=== PATIENT | female | born 1940 | race Caucasian/White ===

== ENCOUNTER → 2017-09-20 | Day surgery (SDC) | payer MEDICARE ==
[~2017-09-20] VITALS: Ht 171.4 cm; Wt 56.0 kg
[~2017-09-20] MED LIST: *HYDROmorphone PF 1 MG VIAL PERIprocedural Use ONLY ONE; *morphine SULFATE 4 MG/ML PERIprocedure ONLY ONE; ACETAMINOPHEN 1000 MG/100 ML 100 ML IV ONE; AMLO5TAB2 PO; APIX2.5T PO; ARMO30TA PO; BUPIVACAINE/EPINEPHRINE 0.25% 50 ML VIAL ONE; CHLORHEXIDINE GLUCONATE 2 % 1 PACK (2 CLOTHS) TOPICAL PRN; CHLORHEXIDINE GLUCONATE 4% SOLN 120 ML BTL TOPICAL SCH; CLINDAMYCIN PHOS 600 MG/4 ML VIAL ONE; DEXAMETHASONE SOD PHOS 4 MG/ML VIAL IV ONE; DILT120C9 PO; DO NOT ADM ANY ANTICOAGULANT DRUGS PRN; ESTR42.5V VAGINAL; GENTAMICIN SULFATE 80 MG/2 ML VIAL ONE; HYDROmorphone HCL PF 2 MG/ML VIAL IV PUSH ONE; KETOROLAC TROMETHAMINE 30 MG/ML (IVP) VIAL IM ONE; KETOROLAC TROMETHAMINE 30 MG/ML (IVP) VIAL ONE; LIDOCAINE HCL 1% PF 5 ML SYRINGE OTHER ONE; LOSA25TA PO; MORPHINE SULFATE 2 MG/ML INJ IV PUSH PRN; OMEP20TA93 PO; ONDANSETRON HCL 4 MG/2 ML VIAL IV ONE; POVIDONE IODINE 5% (ANTISEPSIS KIT) 4 APPLICATIONS EACH NARE PRN; PROPOFOL 200 MG/20 ML AMP IV ONE; SODIUM CHLORID 0.9% 500 ML IV PRN; VANCOMYCIN 1000 MG/NS 250 ML (for <70 kg) IV SCH; VANCOMYCIN HCL 1000 MG VIAL ONE; ceFAZolin INJ 1,000 MG VIAL ONE
[2017-09-20] MEDS: LACTATED RINGER'S 1000 ML IV PRN ×2 (07:15→10:15)
[2017-09-20 07:19] LABS: AUTOMATED NEUTROPHIL # 2.5 TH/MM3 (1.8-7.7); BASOPHIL % 0.6 % (0.0-2.0); EOSINOPHIL % 1.3 % (0.0-4.0); HEMATOCRIT 35.8 % (35.0-46.0); HEMOGLOBIN 12.3 GM/DL (11.6-15.3); MEAN CELL VOLUME 93.3 FL (80.0-100.0); MEAN CORPUSCULAR HEMOGLOBIN 32.1 PG (27.0-34.0); MEAN CORPUSCULAR HGB CONC 34.4 % (32.0-36.0); MEAN PLATELET VOLUME 8.6 FL (7.0-11.0); MONOCYTE # 0.3 TH/MM3 (0-0.9); NEUT % 65.1 % (16.0-70.0); PLATELET COUNT 160 TH/MM3 (150-450); RED BLOOD COUNT 3.84 MIL/MM3 (4.00-5.30); RED CELL DISTRIBUTION WIDTH 13.2 % (11.6-17.2); WHITE BLOOD COUNT 3.8 TH/MM3 (4.0-11.0)
--- NOTE | 2017-09-20 09:41 | PD.OP ---
cc: Garret Rowell MD Operative Report Date of Surgery: Sep 20, 2017 Preoperative Diagnosis: Displaced right radial shaft fracture, retained hardware right wrist Postoperative Diagnosis: Procedure: Removal of deep hardware right radius, open reduction internal fixation right radius Anesthesia: Gen. Surgeon: Garret Rowell Salesforce Consultant(s): GENNY May PA-C The surgical procedure was assisted by my physician personal care assistant. My P.A. presence was necessary throughout this case for the manipulation and positioning of the surgical extremity. My P.A. was assisting me throughout the duration of this procedure. The skill set of a physician personal care assistant was medically necessary to complete this procedure. During the surgical case the surgical scrub technician was working at the back table and the physician personal care assistant was directly assisting me. Operation and Findings: Implants used: ITS Plan of activity: Nonweightbearing right arm, long-arm splint 2 weeks followed by short arm cast Patient was seen and evaluated preoperatively and found to have a displaced right distal radius shaft fracture. Initially fracture was minimally displaced and patient was treated nonoperatively. However the fracture migrated and displaced further. Informed consent was obtained after detailed discussion of risk and benefits including bleeding, infection, injury to arteries, nerves, and blood vessels, weakness and numbness of hand, and tendon rupture. Informed consent was obtained. Patient received IV antibiotics prior to incision. Timeout procedure was performed. Operative extremity was prepped with alcohol followed by Hibiclens and draped usual sterile fashion. A standard volar approach to the distal radius was utilized. A 5 inch incision was made over the FCR tendon. Tendon sheath was opened. Pronator quadratus was elevated up. The fracture site was now visualized. Attention was now turned towards hardware removal. The hardware was identified and exposed. Osteotomes were used to remove excess bone around the plate. Screwdriver was used to remove the screws. Osteotome was used to remove the plate. Next attention was turned to open reduction internal fixation of fracture. The fracture was gently reduced. Traction was applied. Fracture fragments were manipulated to achieve excellent reduction. K wires were used to hold provisional fixation. Fluoroscopy confirmed appropriate alignment of fracture. A ITS plate was selected. Plate was provisionally fixed to bone with K wires. 3.5 cortical screws were used to compress plate to bone. Fluoroscopy confirmed appropriate alignment of fracture with well-placed hardware. Multiple screws were now placed on each side of the fracture. Screws were predrilled and measured for appropriate length. K wires were removed. Final fluoroscopy revealed excellent of fracture with well-placed hardware. The wound was thoroughly irrigated with sterile saline. Subcutaneous tissue was closed with 3-0 Vicryl and skin was closed with 3-0 nylon. Sterile dressings were applied with Xeroform, 4 x 4, soft roll, and a well padded splint. Patient was awakened and transferred to recovery room in stable condition Garret Rowell MD Sep 20, 2017 09:41
--- NOTE | 2017-09-20 09:47 | RADRPT ---
EXAM DATE/TIME: 09/20/2017 09:22 [facility] COMPARISON: No previous studies available for comparison. INDICATIONS : ORIF right wrist fracture. MEDICAL HISTORY : Unobtainable. SURGICAL HISTORY : Unobtainable. ENCOUNTER: Initial ACUITY: 1 day PAIN SCORE: Non-responsive. LOCATION: Right wrist FINDINGS: Anatomic alignment with plate bridging distal radius fracture. Fibular fracture again noted. Carpus intact. CONCLUSION: Anatomic alignment with plate and screws across radial fracture.. Francesco Lynne MD FACR on September 20, 2017 at 9:41 Board Certified Radiologist. This report was verified electronically.
[2017-09-20 11:39] LABS: BICARBONATE 23.6 MEQ/L (21.0-32.0); CALCIUM 8.6 MG/DL (8.5-10.1); CREATININE 0.71 MG/DL (0.50-1.00)
[2017-09-20 11:53] LABS: BASOPHIL % 0.4 % (0.0-2.0); EOSINOPHIL % 0.6 % (0.0-4.0); HEMATOCRIT 34.5 % (35.0-46.0); HEMOGLOBIN 11.8 GM/DL (11.6-15.3); LYMPH % 21.4 % (9.0-44.0); LYMPHOCYTE # 0.9 TH/MM3 (1.0-4.8); MEAN CORPUSCULAR HEMOGLOBIN 31.8 PG (27.0-34.0); MEAN CORPUSCULAR HGB CONC 34.1 % (32.0-36.0); MEAN PLATELET VOLUME 9.1 FL (7.0-11.0); MONO % 2.6 % (0.0-8.0); MONOCYTE # 0.1 TH/MM3 (0-0.9); PLATELET COUNT 181 TH/MM3 (150-450); RED BLOOD COUNT 3.71 MIL/MM3 (4.00-5.30); RED CELL DISTRIBUTION WIDTH 12.9 % (11.6-17.2); WHITE BLOOD COUNT 4.1 TH/MM3 (4.0-11.0)
[2017-09-20 14:45] VITALS: BP 128/67; PULSE 60; RESP 16; TEMP 97.8; O2SAT 97
--- NOTE | 2017-09-20 20:44 | EKG ---
Date Performed: 09/20/2017 Time Performed: 11:20:16 PTAGE: 77 years EKG: ATRIAL PACING LEFT ANTERIOR FASCICULAR BLOCK NONSPECIFIC ST & T-WAVE ABNORMALITY ABNORMAL E CG PREVIOUS TRACING : 09/20/2017 06.21 Compared to prior tracing no significant change DOCTOR: Norma Sharif Interpretating Date/Time 09/20/2017 20:43:49
--- NOTE | 2017-09-20 21:11 | EKG ---
Date Performed: 09/20/2017 Time Performed: 06:21:56 PTAGE: 77 years EKG: Sinus bradycardia. Left axis deviation Left ventricular hypertrophy Lateral ST-T changes ar e probably due to ventricular hypertrophy Abnormal ECG Compared to the PREVIOUS TRACING left axis present DOCTOR: Norma Sharif Interpretating Date/Time 09/20/2017 21:10:20
== END | disposition home or self-care (01) ==
LOC: HSDC 05:26
PROVIDERS: ATTEND Orthopaedic Surgery Orthopaedic Trauma
DX: S52.301 Unspecified fracture of shaft of right radius (principal); R94.31 Abnormal electrocardiogram [ECG] [EKG]; I10 Essential (primary) hypertension; I48.91 Unspecified atrial fibrillation
CPT/HCPCS: 01830; 20680; 25575; 73100; 76000; 80048; 85025; 93005; C1713; J0131; J1100; J1170; J1580; J1885; J2270; J2405; J3010; J3370; J7050; J7120; J0690